=== PATIENT | male | born 1980 | race Two or more races ===

== ENCOUNTER 2021-03-17 11:35 | Emergency (ER) | payer OTHER, SELFPAY ==
[2021-03-17 11:59] VITALS: BP 146/87; PULSE 115; RESP 24; TEMP 36.6; O2SAT 97; BMI 28.7
[2021-03-17] MEDS: Buprenorphine/Naloxone 4/1 mg FILM 1 FILM SUBLINGUAL (13:20)
[2021-03-17] MEDS: LORazepam 2 MG/ML VIAL IM (13:20)
[2021-03-17 14:03] VITALS: BP 133/66; PULSE 73; RESP 16; TEMP 37.1; O2SAT 98
--- NOTE | 2021-03-17 14:55 | ED_ITS ---
HPI - General Adult General Chief complaint: ETOH/Substance Use Stated complaint: withdrawal Time Seen by Provider: 03/17/21 14:49 Source: patient Mode of arrival: ambulatory Limitations: no limitations History of Present Illness HPI narrative: Patient presents to ED for opiate withdrawal. Patient states he last took heroin yesterday evening. Yesterday afternoon he went to [facility] who gave hime some meds to help with symptoms but not any Suboxone or methadone. Patient was given some benzos. Patient started withdrawaing this morning so he went to Suboxone clinic and they gave him 2 doses of Suboxone 2 mg strips. Sister says patient's symptoms do not improve. The patient came to the ED further treatment. States patient Suboxone prescription already sent to [facility]. Patient having withdrawal symptoms such as abdominal pain, anxiety, diarrhea, and cold sweats. Patient denies any chest pain or shortness of breath. Related Data Allergies Allergy/AdvReac Type Severity Reaction Status Date / Time No Known Allergies Allergy Unverified 01/09/20 15:08 Review of Systems Review of Systems: Yes all other systems are reviewed and are negative Constitutional: Constitutional: Reports as per HPI, Reports no additional constitutional complaints, Reports body ache(s) and Reports chills Eyes: Eyes: Reports as per HPI and Reports no additional eye complaints ENT: Reports system reviewed and no additional complaints, except as documented and Reports as per HPI Cardiovascular: Cardiovascular: Reports as per HPI and Reports no additional cardiovascular complaints Respiratory: Respiratory: Reports as per HPI and Reports no additional respiratory complaints Gastrointestinal: Gastrointestinal: Reports as per HPI, Reports no additional gastrointestinal complaints, Reports abdominal pain, Reports diarrhea, Reports nausea and Reports vomiting Genitourinary: Genitourinary: Reports no additional male genitourinary complaints and Reports as per HPI Musculoskeletal: Musculoskeletal: Reports no additional musculoskeletal complaints and Reports as per HPI Neurologic: Reports system reviewed and no additional complaints, except as documented and Reports as per HPI Psychiatric: Psychiatric: Reports no additional psychiatric complaints and Reports as per HPI [facility] Social History Social History Alcohol intake: current Alcohol intake frequency: a few times a week Alcohol type: beer Patient Tobacco Use Status: Current everyday Tobacco user Use of substances other than those prescribed or required for medical reasons: Yes Substance Use Type: Crack/Cocaine and Heroin Last Used Substance: Days (ago) Advance Directives: No Advance Directives Information Provided: No Physical Exam Vital Signs: Vital Signs: Last Vital Signs Temp 98.8 F 03/17/21 14:03 Pulse 73 03/17/21 14:03 Resp 16 03/17/21 14:03 BP 133/66 03/17/21 14:03 Pulse Ox 98 03/17/21 14:03 Body Mass Index 28.7 Const: General: cooperative, healthy appearing, comfortable, no acute distress, well developed, alert, awake and Physically active Orientation/consciousness: patient oriented x3 HENMT: Head: Yes normal to inspection, Yes No palpable skull fracture present, Yes normocephalic, Yes atraumatic, No abrasion, No Acrocyanosis present, No Burgess's sign, No contusion, No cranial bruits, No hematoma, No laceration, No occipital foramen tenderness, No palpable skull fracture, No raccoon eyes, No scalp lesion, No scalp tenderness, No Temporal artery tenderness present and No periorbital ecchymosis Eyes: General: appearance normal, both eyes and all related structures Neck: Neck: Yes normal visual inspection, Yes full ROM, Yes no lymphadenopathy, Yes no meningeal signs, Yes trachea midline, Yes supple and No tender Chest: Chest palpation & inspection: normal inspection of the chest and normal palpation of entire chest wall Resp: Effort & Inspection: normal respiratory effort and able to speak in complete sentences Auscultation: clear to auscultation bilaterally Cardio: Jugular venous distension: no JVD Heart sounds: S1 normal heart sound present and S2 normal heart sound present GI: Inspection: Yes normal to inspection and No abdominal wall ecchymosis Palpation (GI): Soft to palpation, not firm, nontender, no guarding and not rigid : General: No CVA tenderness and Yes no CVA tenderness Back/Spine/Pelvis: Back: no CVA tenderness, No CVA tenderness and No back tenderness Skin: General skin exam: no rashes or lesions noted and elasticity normal Neuro: General: patient oriented x3, gait normal, no meningeal signs and CN's II-XI intact bilaterally Cranial nerves: Yes CN's II-XII intact bilaterally Extrem: General: Yes normal to inspection, Yes full ROM, Yes capillary refill normal and Yes normal exam except as noted Psych: Appearance: grossly normal, well kempt and not disheveled Course Course Course Narrative: Discussed case with wrestling coach Allen recommend another 4mg of Suboxone. Ativan will be added for comfort measures. He will talk to patient regards to detox. Reevaluation(s) Reevaluation #1: Patient not interested in detox. Patient feels better after receiving Suboxone and Ativan. Patient will pickers material handlers his Suboxone prescription. Patient's vital signs improved Time: 15:04 Medical Decision Making MDM Narrative Medical decision making narrative: Opioid withdrawal Discharge Plan Discharge Clinical Impression: Opioid withdrawal Patient Disposition: Home, Self-Care Instructions: Opioid Withdrawal (ED) Additional Instructions: Return to the ED for any abdominal pain, diarrhea, body aches, chills, nausea, vomiting, or any other concerning symptoms. Please follow-up with Suboxone clinic. Please follow up with primary care provider. Please pickers material handlers you Suboxone prescription. Interventions: ED Discharge Assessment Last Done: 03/17/21 15:46 Discharge Date/Time: 03/17/21 15:47 Print Language: Belarusian
--- NOTE | 2021-03-17 15:03 | MHC.RECOVSUP ---
Recovery Support note: Patient is a 41 year old [place] speaking male who presented to [facility] ED due to withdrawal symptoms. Patient last used yesterday and started Suboxone today. When symptoms did not improve, patient presented to [facility] for further assistance. This staff writer met with patient to discuss Suboxone initiation with patient. Patient reports anxiety and body discomfort. Patient agreeable to receiving additional Suboxone to treat his withdrawal. Discussed ATS with patient. Patient reports he is unable to decide on this form of treatment at this time due to his withdrawal symptoms. This staff writer followed up with patient after he received medication. Patient was resting comfortably and awoke when this staff writer shook his shoulder. Patient reports his symptoms have improved however he is still unable to discuss ATS. This staff writer discussed ATS and additional recovery supports with patient's sister who was at his bedside. This staff writer will follow up with patient and prior to discharge to discuss further the resources provided. Discussed case with patient's ED provider.
== END 2021-03-17 15:47 | disposition home or self-care (01) ==
PROVIDERS: Emergency Provider Emergency Medicine; PCP Internal Medicine
DX: F11.23 Opioid dependence with withdrawal (principal); F14.10 Cocaine abuse, uncomplicated; Z79.899 Other long term (current) drug therapy
CPT/HCPCS: 96372; 99284; J2060

== ENCOUNTER 2021-04-09 11:14 | Outpatient (REF) | payer OTHER, SELFPAY ==
[2021-04-09 11:44] LABS: MANUAL DIFF FLAG NO
[2021-04-09 12:14] LABS: Basophils Percent Auto 0.2 % (0-2); Eosinophils Absolute Auto 0.1 X10*3/uL (0.0-0.4); Eosinophils Percent Auto 1.5 % (0-4); Hematocrit 45.6 % (42.0-52.0); Hemoglobin 14.9 g/dl (14.0-18.0); Imm Gran Abs Auto 0.04 X10*3/uL (0.00-0.03); Imm Gran Pct Auto 0.4 % (0.0-0.4); Lymphocytes Absolute Auto 1.6 X10*3/uL (1.2-4.9); Lymphocytes Percent Auto 17.4 % (20-40); Mean Corpuscular HGB Conc 32.7 g/dl (31.0-36.0); Mean Corpuscular Hemoglobin 28.9 pg (27.0-33.0); Mean Corpuscular Volume 88.4 fL (80.0-98.0); Mean Platelet Volume 10.1 fL (9.4-12.4); Monocytes Absolute Auto 0.6 X10*3/uL (0.1-1.2); Monocytes Percent Auto 6.8 % (2-11); Neutrophils Absolute Auto 6.8 x10*3/uL (2.0-8.3); Neutrophils Percent Auto 73.7 % (45-73); Platelet Count 254 X10*3/uL (160-400); Red Blood Count 5.16 X10*6/uL (4.60-5.80); Red Cell Distribution Width 14.5 % (11.0-16.0); White Blood Count 9.2 X10*3/uL (4.8-10.8)
[2021-04-09 12:48] LABS: Alanine Aminotransferase 18 U/L (0-40); Albumin Level 4.1 g/dL (3.5-5.0); Alkaline Phosphatase 64 U/L (39-117); Anion Gap 12 (12-20); Aspartate Amino Transferase 16 U/L (5-37); Bilirubin Total 0.5 mg/dL (0.0-1.0); Blood Urea Nitrogen 8 mg/dL (9-16); Calcium 9.3 mg/dL (8.4-10.2); Carbon Dioxide 27 mmol/L (22-29); Chloride 105 mmol/L (96-108); Estimated Glomerular Filt Rate > 60; Gamma Glutamyl Transpeptidase 46 U/L (11-51); Glucose Random 85 mg/dL (60-115); Sodium 140 mmol/L (135-145); Total Protein 6.4 g/dL (6.5-8.0)
[2021-04-12 03:53] LABS: HBsAGNum1 0.22 S/CO (0.00-0.99); HIV AB/AG Nonreactive (Nonreactive); HIV Num 1 0.08 S/CO (0.00-0.99); Hepatitis B Surface Antigen Negative (Negative)
[2021-04-12 03:58] LABS: ~HepC Num1 0.67 S/CO (0.00-0.79); ~Hepatitis C Antibody Nonreactive (Nonreactive)
[2021-04-14 03:53] LABS: Hepatitis A Antibody IgG Nonreactive (Nonreactive)
[2021-04-14 04:05] LABS: Hepatitis A Antibody IgM 0.14 Index (0-0.79); ~Hepatitis A Antibody IgG 0.21 S/CO (0.00-0.99); ~Hepatitis A Antibody IgM Nonreactive (Nonreactive)
[2021-04-15 18:11] LABS: HCV RNA PCR Qn <1.18 NOT DETECTED Log IU/mL (NOT DETECTED); HCV RNA PCR Qn <15 NOT DETECTED IU/mL (NOT DETECTED)
== END 2021-04-09 11:15 | disposition home or self-care (01) ==
LOC: HO.LAB 11:14
PROVIDERS: PCP Internal Medicine; Visit Provider Nurse Practitioner Family
DX: Z11.4 Encounter for screening for human immunodeficiency virus [HIV] (principal); F11.20 Opioid dependence, uncomplicated
CPT/HCPCS: 36415; 80053; 82977; 85025; 86708; 86709; 86803; 87340; 87389; 87522; 87902

== ENCOUNTER 2022-03-13 10:53 | Emergency (ER) | payer OTHER, SELFPAY ==
--- NOTE | ~2022-03-13 | XR_ITS ---
EXAMINATION: XR CHEST CLINICAL INFORMATION: Cough. COMPARISON: 01/20/2017 chest radiographs. TECHNIQUE: Frontal view of the chest was obtained. FINDINGS: No significant abnormality is noted involving the heart, lungs, mediastinum, bony thorax or soft tissues. XR/XR chest 1V IMPRESSION: No acute cardiopulmonary process.
[2022-03-13 11:06] VITALS: BP 144/73; PULSE 76; RESP 18; TEMP 36.2; O2SAT 97; BMI 25.7
--- NOTE | 2022-03-13 11:06 | ED.GENADULT ---
HPI - General Adult General Stated complaint: Headache/Sore throat Time Seen by Provider: 03/13/22 11:06 Source: patient Mode of arrival: ambulatory Limitations: no limitations History of Present Illness HPI narrative: 42 yo male Related Data Allergies Allergy/AdvReac Type Severity Reaction Status Date / Time No Known Allergies Allergy Verified 03/13/22 11:05 [facility] Social History Social History Alcohol intake: current Alcohol intake frequency: a few times a week Alcohol type: beer Patient Tobacco Use Status: Current everyday Tobacco user Substance Use Type: Crack/Cocaine and Heroin
--- NOTE | 2022-03-13 11:12 | ED.URI ---
HPI - URI/Sore Throat General Chief Complaint: Upper Respiratory Symptoms Stated Complaint: Headache/Sore throat Time Seen by Provider: 03/13/22 11:06 Source: patient Mode of arrival: ambulatory Limitations: no limitations History of Present Illness HPI Narrative: 42 yo male presents to the ER for evaluation of sore throat, nasal congestion, productive cough and headaches for the last 2 days. MD elicited complaint: fever, cough, sore throat and nasal congestion Related Data Allergies Allergy/AdvReac Type Severity Reaction Status Date / Time No Known Allergies Allergy Verified 03/13/22 11:05 [facility] Social History Social History Alcohol intake: current Alcohol intake frequency: a few times a week Alcohol type: beer Patient Tobacco Use Status: Current everyday Tobacco user Substance Use Type: Crack/Cocaine and Heroin Physical Exam Vital Signs: Vital Signs: Last Vital Signs Temp 97.2 F 03/13/22 11:06 Pulse 76 03/13/22 11:06 Resp 18 03/13/22 11:06 BP 144/73 H 03/13/22 11:06 Pulse Ox 97 03/13/22 11:06 O2 Del Method 03/13/22 11:06 BMI result Body Mass Index 25.7
--- NOTE | 2022-03-13 11:18 | ED.URI ---
HPI - URI/Sore Throat General Chief Complaint: Upper Respiratory Symptoms Stated Complaint: Headache/Sore throat Time Seen by Provider: 03/13/22 11:06 Source: patient History of Present Illness HPI Narrative: 42-year-old male with no significant past medical history presenting to the ED complaining of sore throat, nasal congestion, productive cough, and headache times 3-4 days. Headache not maximal at onset. Take Motrin without relief. Denies difficulty/inability to swallow, ear pain, chest pain, shortness of breath, recent travel MD elicited complaint: cough, sore throat, rhinorrhea and nasal congestion Related Data Allergies Allergy/AdvReac Type Severity Reaction Status Date / Time No Known Allergies Allergy Verified 03/13/22 11:05 Review of Systems Review of Systems: Constitutional: No Fever, No Chills ENT/Mouth: No Ear Pain, + Nasal Congestion, No Sinus Pain, No Hoarseness, + sore throat, + Rhinorrhea, No Swallowing Difficulty Cardiovascular: No Chest Pain, No SOB Respiratory: + Cough, + Sputum, No Wheezing Gastrointestinal: No Nausea, No Vomiting, No Diarrhea, No Constipation, No Abdominal pain Genitourinary: No Dysuria, No Urinary Frequency, No Hematuria, No Urgency, No Flank Pain Musculoskeletal: No joint pain, No Myalgias, No Joint Swelling Skin: No Skin Lesions, No rash Neuro: No Weakness, No Numbness, No Paresthesias Yes all other systems are reviewed and are negative Constitutional: Constitutional: Reports as per [facility] Past Medical History Attestation statement: The following information was validated with the patient. Social History Social History Alcohol intake: current Alcohol intake frequency: a few times a week Alcohol type: beer Patient Tobacco Use Status: Current everyday Tobacco user Substance Use Type: Crack/Cocaine and Heroin Advance Directives: No Advance Directives Information Provided: No Physical Exam Vital Signs: Vital Signs: Last Vital Signs Temp 97.2 F 03/13/22 11:06 Pulse 76 03/13/22 11:06 Resp 18 03/13/22 11:06 BP 144/73 H 03/13/22 11:06 Pulse Ox 97 03/13/22 11:06 O2 Del Method 03/13/22 11:06 BMI result Body Mass Index 25.7 Const: General: cooperative, healthy appearing, comfortable and no acute distress Orientation/consciousness: patient oriented x3 Limitations: no limitations HEENT: Head: Yes normal to inspection and Yes atraumatic Ears: hearing grossly normal bilaterally, external ears normal, TM's normal bilaterally and mastoids normal General nose exam: Normal external nose present Face and sinus: Yes normal facial exam Mouth: no muffled voice Throat: Yes tonsils normal, Yes uvula midline, Yes posterior oropharynx abnormal (Erythema), No uvula laterally displaced and No uvular edema Eyes: General: appearance normal, both eyes and all related structures EOM: EOMs intact bilaterally Neck: Neck: Yes normal visual inspection, Yes no lymphadenopathy and Yes no meningeal signs Resp: Effort & Inspection: normal respiratory effort, no respiratory distress and not tachypneic Auscultation: clear to auscultation bilaterally, no crackles, no rales, no rhonchi and no wheezes Cardio: Rate: regular rate Heart sounds: S1 normal heart sound present and S2 normal heart sound present Skin: Rashes: no rashes Wounds: no wounds Neuro: General: patient oriented x3, tone normal and no meningeal signs Gait exam (Neuro): Normal gait present Extrem: General: Yes normal to inspection Course Course Course Narrative: -1148--COVID-19 positive. CXR unremarkable Results discussed with patient including worrisome signs and symptoms and strict return precautions, and when to return to the emergency department. They verbalized understanding and feel safe for discharge at this time. Medications Administered Discontinued Medications Generic Name Dose Route Start Last Admin Trade Name Freq PRN Reason Stop Dose Admin Acetaminophen/Butalbital/Caffeine 2 tab 03/13/22 11:07 03/13/22 11:21 Butalb/Acetamin/Caff 50/325/40 Tablet PO 03/13/22 11:08 2 tab ONCE ONE Administration MDM - URI/Sore Throat MDM Narrative Medical decision making narrative: 42-year-old male with no significant past medical history presenting to the ED complaining of sore throat, nasal congestion, productive cough, and headache times 3-4 days. On exam vital signs stable, NAD, nontoxic appearing, mild posterior oropharyngeal erythema noted. Uvula midline. Lungs CTA. Concern for viral illness versus pharyngitis vs migraine headache. Low suspicion for SAH/meningitis or encephalitis. Rule out pneumonia. Lower suspicion for ACS/PE Plan: COVID-19, influenza, rapid strep, CXR, PO Fioricet Differential Diagnosis Differential diagnosis: Likely upper respiratory infection, viral infection, bronchitis, influenza and pharyngitis Medical Records Attestation: I reviewed the patient's medical records. Lab Data Attestation: I reviewed the patient's lab results. Labs: Lab Results 03/13/22 03/13/22 03/13/22 Range/Units 11:12 11:12 11:12 COVID-19 ([facility]INA) Positive A (Negative) COVID-19 Clin Com See Note Influenza Type A ([facility]) Negative (Negative) Influenza Type B (AISSATOU) Negative (Negative) Influenza A & B Note See Note S. pyogenes GrpA AISSATOU Negative (Negative) Discharge Plan Discharge Clinical Impression: COVID-19 Patient Disposition: Home, Self-Care Additional Instructions: At this time you will be okay for discharge. Please self isolate for 5-10 days. Do not expose yourself to others. You may not go to work or school. Please continue to follow cold instructions and wash your hands frequently. You may take Tylenol / Motrin as directed on the bottle for pain or fever. If you have constant or persistent shortness of breath, fever unresolved with medications, chest pain, or your unable to eat or drink please return to the ED CDC Guidelines for home isolation: - Stay away from others - WEAR A MASK if you are sick AND STAY HOME - Cover your mouth and nose with a tissue when you cough or sneeze. Dispose of tissues in a lined trash can and wash your hands immediately with soap and water for at least 20 seconds. If soap and water are not available, clean hands with alcohol-based hand production line assembler that contains at least 60% alcohol. - Clean your hands often with soap and water for at least 20 seconds - Avoid touching your eyes, nose and mouth with unwashed hands - Do not share dishes, drinking glasses, cups, eating utensils, towels, or bedding with other people in your home. After using these items, wash them thoroughly with soap and water or put in the reinforced concrete inspector. - Clean high-touch surfaces in your isolation area ( sick room and bathroom) every day; let a caregiver clean and disinfect high-touch surfaces in other areas of the home. Clean the area or item with soap and water or another detergent if it is dirty. Then, use a household disinfectant. - Limit contact with pets and animals: If you must care for a pet, wash your hands before and after interacting with them) Referrals: Rock Frye III, MD [Primary Care Provider] - 1 week (as needed) Stand Alone Forms: Work/School Release
[2022-03-13] MEDS: Butalb/Acetamin/Caff 50/325/40 TABLET 2 TAB PO (11:21)
[2022-03-13 11:28] LABS: COVID-19 Test Positive (Negative); IDNOW Serial# BCCEAD1C; Strep A Nucleic Acid Negative (Negative)
[2022-03-13 11:33] LABS: IDNOW Serial# 16C4AD1C; Influenza A Negative (Negative); Influenza B2 Negative (Negative)
== END 2022-03-13 11:56 | disposition home or self-care (01) ==
PROVIDERS: Physician Assistant; Emergency Provider Emergency Medicine Emergency Medical Services; PCP Internal Medicine
DX: U07.1 COVID-19 (principal); R05.9 Cough, unspecified; R51.9 Headache, unspecified; Z79.899 Other long term (current) drug therapy
CPT/HCPCS: 71045; 87502; 87635; 87651; 99283

== ENCOUNTER 2022-03-14 10:35 | Emergency (ER) | payer OTHER, SELFPAY ==
[2022-03-14 10:38] VITALS: BP 144/76; PULSE 82; RESP 16; TEMP 36.8; O2SAT 100; BMI 25.7
--- NOTE | 2022-03-14 10:55 | PC.NURSE ---
pt is a/oi x 4 no sob/anny noted lungs - cta. heart sounds -regular. abd soft and non-tender. bs + x 4 quads. pt c/o 8/10 headache. pt states s/p fall 2 days ago and hit head on r side post. pt deies any dizziness, chest pain or lightheartedness prior to fall. no hematoma noted.
--- NOTE | 2022-03-14 11:18 | ED_ITS ---
HPI - Headache General Chief Complaint: Headache Stated Complaint: headache Time Seen by Provider: 03/14/22 10:51 Source: patient Mode of arrival: ambulatory Limitations: no limitations History of Present Illness HPI Narrative: 42-year-old male with no significant past history presents to the emergency department complaining of a burning headache times 4 days. He states that he was in the emergency department yesterday for the same symptoms and diagnosed with COVID-19. He received Fioricet for his headache, however; he states he did not have an active headache at the time he received the medication so he is unsure if the medication helped with his headache. Chest x-ray was negative for any acute cardiopulmonary process and he was discharged with education on COVID- 19 self-care and guidelines for home isolation. Today, he states that his headache is unchanged despite treatment with Motrin and Tylenol. He describes the headache as a burning pain on the top of his head causing his head to be tender when he touches it. He endorses a sore throat, cough and 1 episode of diarrhea. He denies any photophobia, changes in vision, double vision, dizziness, changes in gait, fever, or chills. He states he typically drinks 1 pt of alcohol per day with his last drink 2 days ago. He also endorses using c ocaine 3 to 4 times a day with his last use yesterday, and marijuana use intermittently, last use also yesterday. He denies any tremors, nausea, chest pain, shortness of breath. MD elicited complaint: headache Pertinent past history: other (Covid-19) Onset (ago): day(s) Onset description: gradually Location: frontal and parietal Severity: moderate Quality & Timing: intermittent, similar to previous headaches and other (burning) Exacerbating factors: none Relieving factors: nothing Context: occurred at rest Associated symptoms: none Treatments prior to arrival: acetaminophen and ibuprofen Related Data Previous Rx's Medication Instructions Recorded ntgrjnllwk-wvzzzehqnafle-vnwbhqdk 2 tab PO Q4-6H PRN headache #20 03/14/22 50 mg-325 mg-40 mg tablet tabs Allergies Allergy/AdvReac Type Severity Reaction Status Date / Time No Known Allergies Allergy Verified 03/13/22 11:05 Review of Systems Review of Systems: Yes all other systems are reviewed and are negative Constitutional: Constitutional: Reports no additional constitutional complaints, Denies chills, Reports difficulty sleeping (baseline issue per patient), Denies fever(s), Reports headache(s) and Denies night sweats Eyes: Eyes: Reports no additional eye complaints, Denies blurry vision, Denies change in vision, Denies diplopia, Denies floaters, Denies loss of peripheral vision, Denies seeing flashes, Reports photophobia, Denies spots in vision and Denies tunnel vision ENT: Reports system reviewed and no additional complaints, except as documented, Reports Normal hearing present, Denies dental pain, Denies dizziness, Denies facial pain, Reports headache(s), Denies neck pain and Denies disequilibrium Cardiovascular: Cardiovascular: Reports no additional cardiovascular complaints, Denies chest pain, Denies Loss of Consciousness and Denies dyspnea Respiratory: Respiratory: Reports no additional respiratory complaints, Denies chest congestion, Reports cough, Denies pain on inspiration and Denies dyspnea Gastrointestinal: Gastrointestinal: Reports no additional gastrointestinal complaints, Denies melena, Denies hematochezia, Reports diarrhea, Denies nausea and Denies vomiting Genitourinary: Genitourinary: Reports no additional male genitourinary complaints, Denies oliguria, Denies difficulty urinating, Denies urinary frequency, Denies urinary hesitancy and Denies urinary incontinence Musculoskeletal: Musculoskeletal: Reports no additional musculoskeletal complaints, Denies abnormal gait, Denies back pain, Denies myalgias, Denies neck pain, Denies numbness and Denies tingling Integumentary/Breasts: Skin/Breast: Reports system reviewed and no additional complaints, except as docu, Denies lesions, Denies rash, Denies sores and Denies unusual bruising Neurologic: Reports system reviewed and no additional complaints, except as documented, Reports Normal hearing present, Reports Abnormal speech present, Denies abnormal gait, Reports burning sensations (frontal/parietal headache), Denies dizziness, Reports headache(s), Denies numbness, Denies tingling and Denies disequilibrium Psychiatric: Psychiatric: Reports no additional psychiatric complaints, Reports abnormal sleep pattern and Denies change in appetite Endocrine: Endocrine: Reports no additional endocrine complaints, Denies cold intolerance, Denies heat intolerance, Denies polyphagia, Denies polydipsia and Denies polyuria [facility] Past Medical History Attestation statement: The following information was validated with the patient. Source: old records reviewed Social History Social History Alcohol intake: never Patient Tobacco Use Status: Current everyday Tobacco user Smoked in Last 30 Days: Yes Use of substances other than those prescribed or required for medical reasons: No Substance Use Type: Crack/Cocaine and Heroin Advance Directives: No Advance Directives Information Provided: No Physical Exam Vital Signs: Vital Signs: Last Vital Signs Temp 98.8 F 03/14/22 12:15 Pulse 70 03/14/22 12:15 Resp 16 03/14/22 12:15 BP 149/93 H 03/14/22 12:15 Pulse Ox 99 03/14/22 12:15 O2 Del Method 03/14/22 12:15 BMI result Body Mass Index 25.7 Const: General: cooperative, healthy appearing, comfortable, no acute distress, alert and awake Nutritional Appearance: average body habitus Orientation/consciousness: patient oriented x3 Limitations: no limitations HEENT: Head: Yes normal to inspection, Yes normocephalic, Yes atraumatic, No occipital foramen tenderness, No scalp tenderness and No Temporal artery tenderness present Ears: hearing grossly normal bilaterally, external ears normal and TM's normal bilaterally General nose exam: Normal external nose present, Normal nares present, No nasal discharge present and no nasal discharge noted Face and sinus: Yes normal facial exam, Yes sinuses nontender, Yes face symmetric, No sinus tenderness and No Facial tenderness on exam of face and sinuses Mouth: Normal oral and palatal mucosa present, lip normal, tongue normal, moist mucous membranes and No restricted motion Teeth and gingiva: dentition normal Eyes: General: appearance normal, both eyes and all related structures Visual Prado: normal visual prado by confrontation Alignment and Position: alignment normal Periorbital: periorbital findings normal Eyelids: Yes eyelids normal Conjunctivae: conjunctivae normal Sclerae: sclerae normal Corneas: corneas normal Pupils: Equal, round and reactive pupils present EOM: EOMs intact bilaterally Direct Ophthalmoscopy: photophobia Neck: Neck: Yes normal visual inspection, Yes full ROM, Yes no lymphadenopathy, Yes no meningeal signs, Yes trachea midline and No tender Thyroid: Thyroid normal Lymphatic: no lymphadenopathy noted Chest: Chest palpation & inspection: normal inspection of the chest Resp: Effort & Inspection: normal respiratory effort, able to speak in complete sentences, Actively coughing Quality: dry, not labored, no respiratory distress, not tachypneic, no use of accessory muscles and symmetric chest movement Auscultation: clear to auscultation bilaterally Cardio: Rate: regular rate Rhythm: regular rhythm Heart sounds: S1 normal heart sound present and S2 normal heart sound present GI: Inspection: Yes normal to inspection Auscultation: normal bowel sounds Back/Spine/Pelvis: Cervical Spine: cervical ROM normal Thoracic/Lumbar Spine: thoraco-lumbar ROM normal Skin: General skin exam: no rashes or lesions noted and turgor normal Neuro: General: patient oriented x3, gait normal, tone normal, moves all extremities and no meningeal signs Cranial nerves: Yes Facial sensation intact/muscles of mastication intact, Yes Equal, round and reactive pupils present, Yes Bilaterally intact EOM present, Yes Nystagmus not present, Yes Normal facial strength present, Yes Normal gag reflex present, Yes Normal hearing present, Yes Ability to bilaterally rotate head present and Yes Ability to bilaterally elevate shoulders present Cognition (Neuro): normal cognition Speech: Abnormal speech present Gait exam (Neuro): Normal gait present Motor exam (neuro): 5/5 motor strength present throughout and no tremor noted Sensory Exam: Normal double simultaneous stimulation for sensation Coordination: bzlwyj-lc-cotp test normal, does not sway with eyes open and Romberg test negative Romberg Test: Negative Pupils: Normal pupillary esperanza ctivity/response: bilateral Extrem: General: Yes normal to inspection, Yes full ROM, Yes capillary refill normal and Yes normal gait Psych: Appearance: grossly normal Mental Status: mental status grossly normal Speech and movement: Normal speech and movement present Affect: normal affect Attitude: cooperative Thought process: Normal thought process present Thought content: Normal thought content present Insight: Good insight present (Psych) Judgement: Good judgement present (Psych) Medications Administered Discontinued Medications Generic Name Dose Route Start Last Admin Trade Name Freq PRN Reason Stop Dose Admin Acetaminophen/Butalbital/Caffeine 1 tab 03/14/22 11:51 03/14/22 12:26 Butalb/Acetamin/Caff 50/325/40 Tablet PO 03/14/22 11:52 1 tab ONCE ONE Administration MDM - Headache MDM Narrative Medical decision making narrative: 42-year-old male patient with no past medical history documented presents to the emergency department with a 4 day history of headaches in the recent setting of COVID-19 diagnosis. On physical exam, patient appears in no acute distress, able to speak in full sentences, with no neurological deficits. Romberg negative, equal strength in all extremities with full ROM, no neck discomfort or stiffness, low suspicion for SAH, meningitis, temporal arteritis, CVA, encephalitis. Blood work unremarkable. Patient medicated with Fioricet for headache with moderate relief in pain per patient. Physical exam and test results discussed with patient with no unanswered questions. Patient educated to return to the emergency department for changes in vision, changes in gait, altered mental status, worsening headache, thunderclap headache, or worst headache of his life. Recommended to follow-up outpatient with his primary care provider. Patient cleared for discharge. Medical Records Attestation: I reviewed the patient's medical records. Lab Data Attestation: I reviewed the patient's lab results. Result diagrams: 03/14/22 11:36 03/14/22 11:36 Labs: Lab Results 03/14/22 03/14/22 Range/Units 11:36 11:36 WBC 6.6 (4.8-10.8) X10*3/uL RBC 5.10 (4.60-5.80) X10*6/uL Hgb 15.3 (14.0-18.0) g/dl Hct 45.8 (42.0-52.0) % MCV 89.8 (80.0-98.0) fL MCH 30.0 (27.0-33.0) pg MCHC 33.4 (31.0-36.0) g/dl RDW 13.7 (11.0-16.0) % Plt Count 275 (160-400) X10*3/uL MPV 9.4 (9.4-12.4) fL Immature Gran % (Auto) 0.6 H (0.0-0.4) % Neut % (Auto) 65.8 (45-73) % Lymph % (Auto) 21.5 (20-40) % [place] % (Auto) 7.5 (2-11) % Eos % (Auto) 4.1 H (0-4) % Baso % (Auto) 0.5 (0-2) % Lymph # (Auto) 1.4 (1.2-4.9) X10*3/uL [place] # (Auto) 0.5 (0.1-1.2) X10*3/uL Eos # (Auto) 0.3 (0.0-0.4) X10*3/uL Baso # (Auto) 0.0 (0.0-0.2) X10*3/uL Abs Immat Gran (auto) 0.04 H (0.00-0.03) X10*3/uL Absolute Neuts (auto) 4.3 (2.0-8.3) x10*3/uL Absolute Nucleated RBC 0.000 (0.0-0.012) X10*3/uL Nucleated RBC % (auto) 0.0 (0.0-0.2) /100WBC Sodium 142 (135-145) mmol/L Potassium 4.7 (3.3-5.1) mmol/L Chloride 107 (96-108) mmol/L Carbon Dioxide 31 H (22-29) mmol/L Anion Gap 9 L (12-20) BUN 9 (9-16) mg/dL Creatinine 0.75 (0.5-1.4) mg/dL Estim Creat Clear Calc 150.7 Estimated GFR > 60 Random Glucose 104 (60-115) mg/dL Calcium 9.3 (8.4-10.2) mg/dL Total Bilirubin 0.2 (0.0-1.0) mg/dL AST 21 (5-37) U/L ALT 20 (0-40) U/L Alkaline Phosphatase 62 (39-117) U/L Total Protein 6.4 L (6.5-8.0) g/dL Albumin 4.0 (3.5-5.0) g/dL Discharge Plan Discharge Clinical Impression: Migraine, COVID-19 Patient Disposition: Home, Self-Care Instructions: Migraine Headache (ED) Additional Instructions: Steps to help prevent the spread of COVID-19 if you are sick You tested positive for COVID-19 and have symptoms, regardless of vaccination status https://www.cdc.gov/coronavirus/2019-ncov/hc-afp-tiv-sick/index.html , follow the steps below to care for yourself and to help protect other people in your home and community. Stay home for at least 5 days * Stay home for 5 days and isolate from others in your home.?Most people with COVID-19 have mild illness and can recover at home without medical care. Do not leave your home, except to get medical care. Do not visit public areas and do not go to places where you are unable to wear a mask * Take care of yourself.?Get rest and stay hydrated. Take obeo-fqw-vckwaod medicines, such as acetaminophen, to help you feel better. * Stay in touch with your doctor.?Call before you get medical care. Be sure to get care if you have trouble breathing, or have any other?emergency warning signs https://www.cdc.gov/coronavirus/2019-ncov/xd-yiy-cgv-sick/steps- when-sick.html#warning-signs , or if you think it is an?emergency https://w ww.cdc.gov/coronavirus/2019-ncov/og-ufu-opr-sick/kndnl-jouf-ksse.html#emergenc y . * Do not travel and avoid public transportation, ride-sharing, or taxis if possible. Separate yourself from other people As much as possible, stay in a specific room?and away from other people and pets in your home. If possible, you should use a separate bathroom. If you need to be around other people or animals in or outside of the home, wear a well-fitting? mask https://www.cdc.gov/coronavirus/2019-ncov/your-health/effective-masks.html . Tell your close contacts?that they may have been exposed to COVID-19. An infected person can spread COVID-19 starting 48 hours (or 2 days) before the p erson has any symptoms or tests positive. By letting your?close contacts https://www.cdc.gov/coronavirus/2019-ncov/your-health/rv-kol-kccx-exposed.html ?know they may have been exposed to COVID-19, you are helping to protect everyone. * See?COVID-19 and Animals h ttps://www.cdc.gov/coronavirus/2019-ncov/raffl-gtxj-qqaifl/animals.html ?if you have questions about pets. * If you are diagnosed with COVID-19, someone from the health department may call you.?Answer the call https://www.cdc.gov/coronavirus/2019-ncov/your-health/qh-hev-yezi-exposed.html ?to slow the spread. Monitor your symptoms * Symptoms https://www.cdc.gov/coronavirus/2019-ncov/symptoms-testing/symptoms.html ?of COVID-19 include fever, cough, or other symptoms. * Follow care instructions from your healthcare provider and local health department.?Your local health authorities may give instructions on checking your symptoms and reporting information. When to seek emergency medical attention Look for?emergency warning signs*?for COVID-19. If someone is showing any of these signs,?seek emergency medical care?immediately: * Trouble breathing * Persistent pain or pressure in the chest * New confusion * Inability to wake or stay awake * Pale, flynn, or blue-colored skin, lips, or nail beds, depending on skin tone *This list is not all possible symptoms. Please call your medical provider for any other symptoms that are severe or concerning to you. Call 911 or call ahead to your local emergency facility:?Notify the winch truck operator that you are seeking care for someone who has or may have COVID-19. If you are sick, wear a well-fitting mask * You should wear a?mask https://www.cdc.gov/co ronavirus/2019-ncov/yzprcdz-oimukoi-akjs/mkyxf-tp-kazga.html ?if you must be around other people or animals, including pets (even at home). * Wear a?mask https://www.cdc.gov/co ronavirus/2019-ncov/your-health/effective-masks.html ?with the best fit, protection, and comfort for you. * You don?t need to wear the mask if you are alone. If you can?t put on a mask (because of trouble breathing, for example), cover your coughs and sneezes in some other way. Try to stay at least 6 feet away from other people. This will help protect the people around you. * Masks should not be placed on young children under age 2 years, anyone who has trouble breathing, or anyone who is not able to remove the mask without help. Cover your coughs and sneezes * Cover your mouth and nose?with a tissue when you cough or sneeze. * Throw away used tissues?in a lined trash can. * Immediately wash your hands?with soap and water for at least 20 seconds. If soap and water are not available, clean your hands with an alcohol-based hand rn building that contains at least 60% alcohol. Clean your hands often * Wash your hands?often with soap and water for at least 20 seconds. This is especially important after blowing your nose, coughing, or sneezing; going to the bathroom; and before eating or preparing food. * Use hand rn building?if soap and water are not available. Use an alcohol-based hand rn building with at least 60% alcohol, covering all surfaces of your hands and rubbing them together until they feel dry. * Soap and water?are the best option, especially if hands are visibly dirty. * Avoid touching?your eyes, nose, and mouth with unwashed hands. * Handwashing Tips https://www.cdc.gov/handwashing/index.html Avoid sharing personal household items * Do not share?dishes, drinking glasses, cups, eating utensils, towels, or bedding with other people in your home. * Wash these items thoroughly after using them?with soap and water or put in the barrel assembler. Clean surfaces in your home regularly * Clean and disinfect?high-touch surfaces (for example, doorknobs, tables, handles, light switches, and countertops) in your ?sick room? and bathroom. In shared spaces, you should clean and disinfect surfaces and items after each use by the person who is ill. * If you are sick and cannot clean,?a caregiver or other person should only clean and disinfect the area around you (such as your bedroom and bathroom) on an as needed basis. Your caregiver/other person should wait as long as possible (at least several hours) and wear a mask before entering, cleaning, and disinfecting shared spaces that you use. * Clean and disinfect areas that may have blood, stool, or body fluids on them. * Use household building associate and disinfectants.?Clean visible dirty surfaces with household building associate containing soap or detergent. Then, use a household disinfectant. * * Use a product from?EPA?s List N: Disinfectants for Coronavirus (COVID-19) http s://www.epa.gov/pesticide-registration/tuwz-r-phscyoaxiejth-xhi-ovrtgrr-qvo s-cov-2 * Be sure to follow the instructions on the label to ensure safe and effective use of the product. Many products recommend keeping the surface wet with a disinfectant for a certain period of time (look at ?contact time? on the product label). * You may also need to wear personal protective equipment, such as gloves, depending on the directions on the product label. * Immediately after disinfecting,?wash your hands https://www.cdc.gov/handwashing/rher-vqh-rtfatrlydvo.html ?with soap and water for 20 seconds. Take steps to improve ventilation at home * Improve ventilation (air flow) at home https://www.cdc.gov/coronavirus/2019-ncov/pre moee-xhmxiok-vbss/Xklbjxvps-Kwynzidlpuz-Svke.html#:~:text=However%2C%20if%20a% 20visitor%20needs,getting%20and%20spreading%20COVID%2D19. ?to help prevent from spreading COVID-19 to other people in your household. * Clear out COVID-19 virus particles in the air?by opening windows, using air filters, and turning on fans in your home. * Use?this interactive tool https://www.cdc.gov/coronavirus/2019-ncov/dbvgdam-rzmlvgb-faux/i pgwxrbjzlh-zvalwewzjkc-rnex.html ?to learn how to improve air flow in your home. Prescriptions: New xanqohtoyu-tvqubfhzcdxvo-knqk 50-325-40 mg tablet 2 tab PO Q4-6H PRN (Reason: headache) Qty: 20 0RF Rx Instructions: do not exceed 6 tabs per 24 hrs Referrals: Rock Frye III, MD [Primary Care Provider] - Interventions: ED Discharge Assessment Last Done: 03/14/22 13:06
[2022-03-14 11:42] LABS: MANUAL DIFF FLAG NO
[2022-03-14 11:46] LABS: Basophils Percent Auto 0.5 % (0-2); Eosinophils Absolute Auto 0.3 X10*3/uL (0.0-0.4); Eosinophils Percent Auto 4.1 % (0-4); Hematocrit 45.8 % (42.0-52.0); Hemoglobin 15.3 g/dl (14.0-18.0); Imm Gran Abs Auto 0.04 X10*3/uL (0.00-0.03); Imm Gran Pct Auto 0.6 % (0.0-0.4); Lymphocytes Absolute Auto 1.4 X10*3/uL (1.2-4.9); Lymphocytes Percent Auto 21.5 % (20-40); Mean Corpuscular HGB Conc 33.4 g/dl (31.0-36.0); Mean Corpuscular Volume 89.8 fL (80.0-98.0); Mean Platelet Volume 9.4 fL (9.4-12.4); Monocytes Absolute Auto 0.5 X10*3/uL (0.1-1.2); Monocytes Percent Auto 7.5 % (2-11); Neutrophils Absolute Auto 4.3 x10*3/uL (2.0-8.3); Neutrophils Percent Auto 65.8 % (45-73); Platelet Count 275 X10*3/uL (160-400); Red Cell Distribution Width 13.7 % (11.0-16.0); White Blood Count 6.6 X10*3/uL (4.8-10.8)
[2022-03-14 12:03] LABS: Alanine Aminotransferase 20 U/L (0-40); Alkaline Phosphatase 62 U/L (39-117); Anion Gap 9 (12-20); Aspartate Amino Transferase 21 U/L (5-37); Bilirubin Total 0.2 mg/dL (0.0-1.0); Blood Urea Nitrogen 9 mg/dL (9-16); Calcium 9.3 mg/dL (8.4-10.2); Carbon Dioxide 31 mmol/L (22-29); Chloride 107 mmol/L (96-108); Creatinine Clr Calc Pharmacy 150.7; Estimated Glomerular Filt Rate > 60; Glucose Random 104 mg/dL (60-115); Potassium 4.7 mmol/L (3.3-5.1); Sodium 142 mmol/L (135-145); Total Protein 6.4 g/dL (6.5-8.0)
[2022-03-14 12:15] VITALS: BP 149/93; PULSE 70; RESP 16; TEMP 37.1; O2SAT 99
[2022-03-14] MEDS: Butalb/Acetamin/Caff 50/325/40 TABLET 1 TAB PO (12:26)
== END 2022-03-14 13:06 | disposition home or self-care (01) ==
PROVIDERS: Nurse Practitioner Family; Emergency Provider Emergency Medicine; PCP Internal Medicine
DX: U07.1 COVID-19 (principal); G43.909 Migraine, unspecified, not intractable, without status migrainosus; F17.200 Nicotine dependence, unspecified, uncomplicated
CPT/HCPCS: 36415; 80053; 85025; 99283; 99284

== ENCOUNTER 2024-08-24 18:23 | Emergency (ER) | payer MEDICAID, SELFPAY ==
--- NOTE | ~2024-08-24 | XR_ITS ---
CLINICAL HISTORY: pain, injury 3 view left foot Comparison: None Findings: No fractures or dislocations. No significant arthritic change or erosions. No radiopaque foreign body. IMPRESSION: 1. No acute findings. This document has been electronically signed by: Stanley Ramey MD on 08/24/2024 19:40:34
--- NOTE | ~2024-08-24 | XR_ITS ---
CLINICAL HISTORY: pain, injury 3 view left ankle Comparison: None Findings: Bones intact. No dislocations. No acute fracture deformity. No significant arthritic change or erosions. There is an ankle effusion present. Soft tissue swelling around the lateral aspect of the ankle present. No radiopaque foreign body. IMPRESSION: 1. No acute fracture. Lateral soft tissue swelling and ankle effusion present. This document has been electronically signed by: Stanley Ramey MD on 08/24/2024 19:39:02
[2024-08-24 18:30] VITALS: BP 153/97; PULSE 95; RESP 18; TEMP 36.6; O2SAT 96; BMI 25.0
--- NOTE | 2024-08-24 18:31 | ED_ITS ---
HPI - Extremity Problem General Chief complaint: General Medical Stated complaint: swollen ankle, taser to the back Time Seen by Provider: 08/24/24 20:03 Source: patient and RN notes reviewed Mode of arrival: ambulatory Limitations: no limitations History of Present Illness ED Provider: Kellen Cristobal PA-C HPI Narrative: This is a 44-year-old male, with no known medical problems, who presents emergency department with complaints of left foot and ankle pain. Patient states that yesterday afternoon he was arrested. He states that during this arrest, multiple police officers twisted his left ankle. He also was placed in handcuffs. Patient states that he has had increased swelling, bruising, and pain to his left ankle and foot. He denies prior injury to his foot and ankle in the past. Denies taking any medications prior to his arrival today. Patient also reports that he was tased multiple times by the police officers yesterday. Unsure when his last tetanus shot was. No other complaints or concerns at this time. MD Complaint: extremity pain and extremity swelling Onset (ago): day(s) Pain Consistency: constant Location: left and lower extremity Quality: aching Radiation: none Relieving factors: cold therapy, immobilization, elevation and rest Exacerbating factors: range of motion, weight bearing and walking Associated symptoms: denies other symptoms Related Data Previous Rx's ?Medication ?Instructions ?Recorded [id number] 2 tab PO Q4-6H PRN headache #20 03/14/22 50 mg-325 mg-40 mg tablet tabs acetaminophen 500 mg tablet 1,000 mg (2 x 500 mg) PO Q8H PRN 08/24/24 (Tylenol Extra Strength) pain #30 tabs ibuprofen 600 mg tablet 600 mg PO Q6H PRN pain #14 tabs 08/24/24 Allergies Allergy/AdvReac Type Severity Reaction Status Date / Time No Known Allergies Allergy Verified 08/24/24 18:33 Review of Systems Review of Systems: Constitutional: No Weight loss, No Fever, No Chills, No Night Sweats, No Fatigue, No Malaise ENT/Mouth: No Hearing loss, No Ear Pain, No Nasal Congestion, No Sinus Pain, No Hoarseness, No sore throat, No Rhinorrhea, No Swallowing Difficulty Eyes: No Eye Pain, No Swelling, No Redness, No Foreign Body, No Discharge, No Vision Changes Cardiovascular: No Chest Pain, No SOB, No Dyspnea on Exertion, No Orthopnea, No Edema, No Palpitations Respiratory: No Cough, No Sputum, No Wheezing, No Smoke Exposure, No Dyspnea Gastrointestinal: No Nausea, No Vomiting, No Diarrhea, No Constipation, No Abdominal pain, No Hematochezia, No Melena Genitourinary: No irregular bleeding, No Dysuria, No Urinary Frequency, No Hematuria, No Urinary Incontinence/retention, No Urgency, No Flank Pain, No Urinary Flow Changes, No Hesitancy Musculoskeletal: + joint pain, No Myalgias, + Joint Swelling Skin: No Skin Lesions, No rash Neuro: No Weakness, + Numbness, + Paresthesias, No Loss of Consciousness, No Dizziness, No Headache Psych: No Anxiety/Panic, No Depression, No SI/HI/AH/VH, No Social Issues, Heme/Lymph: + Bruising, No Bleeding,No Lymphadenopathy Endocrine: No Polyuria, No Polydipsia, No Temperature Intolerance Yes all other systems are reviewed and are negative Constitutional: Constitutional: Reports as per [facility] Social History Social History Alcohol intake: never Patient Tobacco Use Status: Current everyday Tobacco user Smoked in Last 30 Days: Yes Use of substances other than those prescribed or required for medical reasons: No Substance Use Type: Crack/Cocaine and Heroin Advance Directives: No Advance Directives Information Provided: No Physical Exam Vital Signs: Vital Signs: Last Vital Signs Temp 97.8 F 08/24/24 20:27 Pulse 95 08/24/24 20:27 Resp 18 08/24/24 20:27 BP 153/97 H 08/24/24 20:27 Pulse Ox 96 08/24/24 20:27 O2 Del Method Room Air 08/24/24 20:27 BMI result Body Mass Index 25.0 Const: General: cooperative, comfortable and no acute distress Orientation/consciousness: patient oriented x3 Limitations: no limitations HEENT: Head: Yes normal to inspection, Yes normocephalic and Yes atraumatic Ears: hearing grossly normal bilaterally General nose exam: Normal external nose present Face and sinus: Yes normal facial exam Mouth: Normal oral and palatal mucosa present, oropharynx normal and moist mucous membranes Throat: Yes posterior oropharynx normal Eyes: General: appearance normal, both eyes and all related structures Eyelids: Yes eyelids normal Conjunctivae: conjunctivae normal Sclerae: sclerae normal Pupils: Equal, round and reactive pupils present EOM: EOMs intact bilaterally Neck: Neck: Yes normal visual inspection, Yes full ROM and Yes no lymphadenopathy Lymphatic: no lymphadenopathy noted Chest: Chest palpation & inspection: normal inspection of the chest Resp: Effort & Inspection: normal respiratory effort and able to speak in com plete sentences Auscultation: clear to auscultation bilaterally, no crackles, no rales, no rhonchi and no wheezes Cardio: Rate: regular rate Rhythm: regular rhythm Heart sounds: S1 normal heart sound present and S2 normal heart sound present GI: Inspection: Yes normal to inspection Skin: Other: Left lateral chest with multiple abrasions noted consistent with taser. Bilateral knees with superficial abrasions noted, no surrounding erythema or warmth. No drainage. No open wounds. Full ROM of the use without difficulty. Neuro: General: patient oriented x3 and moves all extremities Cranial nerves: Yes Equal, round and reactive pupils present Extrem: Other: Left ankle with lateral ecchymosis and edema. Tenderness to palpation of the lateral malleolus, medial malleolus tenderness to palpation of the 4th and 5th metatarsal. Strong DP and PT pulses. Decreased range of motion with plantar and dorsiflexion. Achilles tendon is intact. Pain with weight-bearing. Left wrist with no bony deformities or swelling. No bony tenderness. Full ROM of the wrist and digits without difficulty. No open wounds or lacerations. Patient reported mild numbness and tingling. General: Yes normal to inspection Right upper extremity: normal to inspection Left upper extremity: normal to inspection Right lower extremity: normal to inspection Left lower extremity: normal to inspection Course Course Course Narrative: This is an RME performed by Esthela Cortes CNP: Additional HPI, ROS, PE not included below will be deferred to primary provider. Patient is a 44-year-old male who presents emergency department for evaluation. He reports that he was taken down by police yesterday night he was tased multiple times in the back he states 4 times for a total duration of 4-5 minutes. He states that 5-6 police officers ultimately brought him down to the ground resulting in twisting to his left ankle with resultant pain and swelling. He also endorses having numbness to the left hand with severe skin sensitivity along the radial aspect. Plan: XR left ankle, lower suspicion for acute cardiac abnormality secondary to Taser, reviewed with my attending Dr. Hudson, will check EKG Medications Administered Discontinued Medications Generic Name Dose Route Start Last Admin Trade Name George PRN Reason Stop Dose Admin Diphtheria/Tetanus/Acell Pertussis 0.5 ml 08/24/24 20:10 08/24/24 20:21 Diphth,Pertus(Acell),Tet Adult 0.5 Ml Syringe IM 08/24/24 20:11 0.5 ml .ONCE ONE Administration Ibuprofen 600 mg 08/24/24 20:10 08/24/24 20:21 Ibuprofen 600 Mg Tablet PO 08/24/24 20:11 600 mg ONCE ONE Administration Medical Decision Making Medical Decision Making [facility] Narrative: This is a 44-year-old male, with no known medical problems, who presents emerg ency department with complaints of left foot and ankle pain since yesterday. On arrival, blood pressure elevated at 153/97, all other vital signs within normal limits. Patient is alert and oriented x4, no head injury arrest. Patient with moderate edema and ecchymosis noted to the left medial and lateral malleolus with decreased range of motion. Patient has strong DP and PT pulses. X-rays were obtained prior to my assessment, there are no bony abnormality seen. Placed left lower extremity and tall walking boot and given crutches. Stressed the importance of following up with orthopedics given ecchymosis and tenderness palpation, reporting that this could be a bad left ankle sprain. He understands and agrees with this plan. Patient given strict return precautions. Updated tetanus in the department as patient has had superficial abrasions noted to bilateral knees. He also reports some numbness sensation in his left wrist after having hand cuffs around his left and right hand. No bony tenderness. Advised to follow-up with the orthopedic team. Patient stable for discharge Differential Diagnosis Differential Diagnoses: The differential diagnosis associated with the presentation includes Fracture, strain, sprain, contusion Independent Interpretation I performed an independent interpretation of an: EKG Interpretation: EKG normal sinus rhythm at a ventricular rate of 84 beats per minute, CT interval 150, QT QTC 384/453. No STEMI Radiology Impression Discussion of test interpretation with radiology: I have reviewed the radiologist's reading. Radiologist Impression: Findings: No fractures or dislocations. No significant arthritic change or erosions. No radiopaque foreign body. IMPRESSION: 1. No acute findings. This document has been electronically signed by: Stanley Ramey MD on 08/24/2024 19:40:34 3 view left ankle Comparison: None Findings: Bones intact. No dislocations. No acute fracture deformity. No significant arthritic change or erosions. There is an ankle effusion present. Soft tissue swelling around the lateral aspect of the ankle present. No radiopaque foreign body. IMPRESSION: 1. No acute fracture. Lateral soft tissue swelling and ankle effusion present. This document has been electronically signed by: Stanley Ramey MD on 08/24/2024 19:39:02 Dictated By: Stanley Ramey MD Discharge Plan Discharge Clinical Impression: Ankle sprain, Sprain and strain of left hand Patient Disposition: Home, Self-Care Instructions: Ankle Sprain (ED), Sprain (ED), P.R.I.C.E. Treatment (ED), Walking Boot (ED) Additional Instructions: You were seen in the emergency department after injuring your left ankle. Your x-rays do not show any broken bones however you may have a very severe ankle sprain. Please rest, ice, and elevate your ankle. Alternate between ibuprofen and or Tylenol as needed for pain and inflammation. Please use walking boot and crutches. You need to follow-up with the unemployment specialist, call on Monday to make an appointment. We also updated your tetanus shot in the department. Please update your records. Your left wrist has some numbness and tingling, this is likely secondary to the compression that was applied during the arrest, please follow-up with the orthopedic team as they have a hand surgeon if you continue to have issues. If any new or worsening symptoms occur including but not limited to worsening pain in your ankle and foot, severe chest pain or shortness of breath, please seek emergent care. Prescriptions: New ibuprofen 600 mg tablet 600 mg PO Q6H PRN (Reason: pain) Qty: 14 0RF acetaminophen [Tylenol Extra Strength] 500 mg tablet 1,000 mg PO Q8H PRN (Reason: pain) Qty: 30 0RF No Action [id number] 50-325-40 mg tablet 2 tab PO Q4-6H PRN (Reason: headache) Qty: 20 0RF Rx Instructions: do not exceed 6 tabs per 24 hrs Referrals: [facility] [Provider Group] Interventions: ED Discharge Assessment Last Done: 08/24/24 20:27 Discharge Date/Time: 08/24/24 20:28 Print Language: Hungarian
--- NOTE | 2024-08-24 18:40 | ECG_ITS ---
Test Reason : ?arrhythmia Blood Pressure : */* mmHG Vent. Rate : 84 BPM Atrial Rate : 84 BPM P-R Int : 150 ms QRS Dur : 96 ms QT Int : 384 ms P-R-T Axes : 40 39 39 degrees QTcB Int : 453 ms Normal sinus rhythm Normal ECG When compared with ECG of 26-May-2015 15:25, No significant change was found Referred By: Ana Cortes Electronically Signed By: BHAVYA IBRAHIM
--- NOTE | 2024-08-24 19:27 | PC.NURSE ---
left ankle has ice pack on, swelling noted, pending xray. pt is alert oriented, no s/s of distress. calm and cooperative.
[2024-08-24] MEDS: Diphth,Pertus(ACell),Tet Adult 0.5 ML SYRINGE IM (20:21)
[2024-08-24] MEDS: Ibuprofen 600 MG TABLET PO (20:21)
[2024-08-24 20:27] VITALS: BP 153/97; PULSE 95; RESP 18; TEMP 36.6; O2SAT 96
== END 2024-08-24 20:28 | disposition home or self-care (01) ==
PROVIDERS: Emergency Provider Emergency Medicine; PCP Internal Medicine
DX: S93.402A Sprain of unspecified ligament of left ankle, initial encounter (principal); S63.92XA Sprain of unspecified part of left wrist and hand, initial encounter; S66.912A Strain of unspecified muscle, fascia and tendon at wrist and hand level, left hand, initial encounter; S80.212A Abrasion, left knee, initial encounter; S80.211A Abrasion, right knee, initial encounter; Y35.813A Legal intervention involving manhandling, suspect injured, initial encounter; Y93.9 Activity, unspecified; Y92.9 Unspecified place or not applicable; Y99.9 Unspecified external cause status; Z23 Encounter for immunization
CPT/HCPCS: 73610; 73630; 90471; 90715; 93005; 99284

== ENCOUNTER → 2024-08-24 18:40 | Outpatient (BNV) | payer SELFPAY | PROVIDERS: PCP Internal Medicine; Visit Provider Radiology Diagnostic Radiology | DX: M25.472 Effusion, left ankle (principal); M79.672 Pain in left foot | CPT/HCPCS: 73610; 73630 ==

== ENCOUNTER → 2024-08-24 18:40 | Outpatient (BNV) | payer MEDICAID, SELFPAY | PROVIDERS: Emergency Provider Emergency Medicine; PCP Internal Medicine; Visit Provider Internal Medicine | DX: I49.9 Cardiac arrhythmia, unspecified (principal) | CPT/HCPCS: 93010 ==